=== PATIENT | male | born 1955 | race Caucasian/White ===

== ENCOUNTER 2019-08-25 14:45 | Outpatient (CLI) | payer MEDICARE ==
--- NOTE | 2019-08-25 15:08 | RAD ---
EXAM: Chest PA and lateral: HISTORY: Cough, congestion and difficulty breathing COMPARISON: None FINDINGS: Heart: Normal cardiac silhouette Aorta: Unremarkable Pulmonary vessels: Normal Costophrenic angles: Costophrenic angles are clear. Lungs: No consolidation or masses. Mild hyperinflation. Chronic lung parenchymal changes. Pneumothorax: No pneumothorax Osseous structures: No osseous abnormalities IMPRESSION: Mild hyperinflation. Chronic lung parenchymal changes.
== END 2019-08-25 14:46 | disposition home or self-care (01) ==
LOC: SCSRAD 14:45
PROVIDERS: ATTEND Family Medicine
DX: J45.901 Unspecified asthma with (acute) exacerbation (principal)
CPT/HCPCS: 71046

== ENCOUNTER 2021-01-29 08:26 | Outpatient (CLI) | payer MEDICARE | END 2021-01-29 08:27 | disposition home or self-care (01) | LOC: BICCT 08:26 | PROVIDERS: ATTEND Family Medicine | DX: R91.1 Solitary pulmonary nodule (principal) | CPT/HCPCS: 71271 ==

== ENCOUNTER 2022-05-14 10:58 | Outpatient (CLI) | payer MEDICARE | END 2022-05-14 10:59 | disposition home or self-care (01) | LOC: BICCT 10:58 | PROVIDERS: ATTEND Family Medicine | DX: Z12.2 Encounter for screening for malignant neoplasm of respiratory organs (principal); Z87.891 Personal history of nicotine dependence; I25.10 Atherosclerotic heart disease of native coronary artery without angina pectoris | CPT/HCPCS: 71271 ==